=== PATIENT | male | born 1990 | race Caucasian/White ===

== ENCOUNTER 2019-03-19 07:19 | Emergency (ER) | payer SELFPAY ==
[2019-03-19 08:11] VITALS: BP 134/80
--- NOTE | 2019-03-19 08:45 | ER Document Report ---
HPI - HPI Patient complains to provider of: Laceration to left index finger with a spinner box this morning Time Seen by Provider: 03/19/19 08:33 Onset: This morning Onset/Duration: Sudden Quality of pain: Sharp Pain Level: 2 Associated Symptoms: None Exacerbated by: Movement Relieved by: Remaining still Similar symptoms previously: No Recently seen / treated by doctor: No - ROS ROS Unobtainable: No ROS unobtainable due to patient's medical condition ROS below otherwise negative: Yes Systems Reviewed and Negative: Yes All other systems reviewed and negative - REPRODUCTIVE Reproductive: DENIES: : - MUSCULOSKELETAL Musculoskeletal: REPORTS: Extremity pain - DERM Skin Color: [place] Past Medical History - Social History Smoking Status: Never Smoker Chew tobacco use (# tins/day): No Smoking Education Provided: No Drug Abuse: None Family History: None Patient has suicidal ideation: No Patient has homicidal ideation: No - Medical History Medical History: Negative Surgical Hx: Negative - Immunizations Immunizations up to date: No Hx Diphtheria, Pertussis, Tetanus Vaccination: No Vertical Provider Document - INFECTION CONTROL TRAVEL OUTSIDE OF THE [place] IN LAST 30 DAYS: No - MUSCULOSKELETAL/EXTREMETIES Notes: Patient with a superficial 0.5 cm laceration to the volar pad of the distal phalanx of the left index finger. Laceration is horizontal in nature does not cross the DIP joint space region. Patient is able to fully flex and extend the finger at the MCP, PIP, DIP joint space regions. Sensation is intact distal to the wound area, capillary refill less than 3 seconds Course - Re-evaluation Re-evalutation: 03/19/19 08:45 29-year-old male with a very superficial laceration to the left index finger. Will have nursing clean the wound area will plan to Dermabond closed. - Vital Signs Vital signs: Temp Pulse Resp BP Pulse Ox 98.4 F 77 16 134/80 H 98 03/19/19 07:27 03/19/19 07:27 03/19/19 07:27 03/19/19 07:27 03/19/19 07:27 Procedures - Laceration/Wound Repair Left Distal Finger 2nd digit Time completed: 09:28 Wound length (cm): 0.5 Wound's Depth, Shape: Superficial, Linear Laceration pre-procedure: Sterile PPE donned, Sterile drapes applied, Shur-Clens applied Wound explored: Clean Irrigated w/ Saline (mLs): 100 Wound Repaired With: Dermabond Layer Closure?: No Post-procedure wound care: Sterile dressing applied Post-procedure NV exam normal: Yes Complications: No Discharge - Discharge Clinical Impression: Laceration of finger, left Qualifiers: Encounter type: initial encounter Finger: index finger Damage to nail status: without damage Foreign body presence: without foreign body Qualified Code(s): S61.211A - Laceration without foreign body of left index finger without damage to nail, initial encounter Condition: Good Disposition: HOME, SELF-CARE Additional Instructions: 1. keep the wound area clean and dry 2. return to the ED for any redness, soft tissue swelling or signs of infection or follow up with your PCP 3. do not apply antibiotic ointment over the Dermabond 4. you may cover the wound area with a dry dressing. Do not pick at the Dermabond, it will flake off over time.
[2019-03-19] MEDS ORDERED: DIPH/PERTUSS(ACELL)/TETANUS VAC/PF 0.5 ML SYR (>=10YO) IM ONE (08:49)
== END 2019-03-19 09:53 | disposition home or self-care (01) ==
LOC: ER 07:19
DX: S61.211A Laceration without foreign body of left index finger without damage to nail, initial encounter (principal); W26.8XXA Contact with other sharp object(s), not elsewhere classified, initial encounter
CPT/HCPCS: 90471; 90715; 99282

== ENCOUNTER 2019-09-12 08:24 | Emergency (ER) | payer SELFPAY ==
--- NOTE | 2019-09-12 11:55 | ER Document Report ---
ED General - General Chief Complaint: Testicular Pain Stated Complaint: TESTICULAR PAIN Time Seen by Provider: 09/12/19 11:03 Notes: 29-year-old male with no pertinent past medical history presents to the emergency department for left-sided testicular pain starting yesterday morning after he picked up his 150 pound dog. States that the pain was sharp, stabbing in nature. Has since resolved. Is desiring a work note. states that he was manuel d that testicular pain can be a sign of COVID and he desires testing for that. He recently traveled to [place]. He denies any headaches, fevers, chills, nausea, vomiting, abdominal pain or additional symptoms at this time. TRAVEL OUTSIDE OF THE [place] IN LAST 30 DAYS: No - Related Data Allergies/Adverse Reactions: hydrocodone [From Vicodin] Allergy (Verified 03/19/19 08:09) Past Medical History - Social History Smoking Status: Unknown if Ever Smoked Chew tobacco use (# tins/day): Yes Frequency of alcohol use: Occasional Drug Abuse: None Family History: DM - Past Medical History Cardiac Medical History: Reports: None Pulmonary Medical History: Reports: None Neurological Medical History: Reports: None Endocrine Medical History: Reports: None Renal/ Medical History: Reports: None GI Medical History: Reports: None - Immunizations Immunizations up to date: No Hx Diphtheria, Pertussis, Tetanus Vaccination: No Review of Systems - Review of Systems Constitutional: No symptoms reported EENT: No symptoms reported Cardiovascular: No symptoms reported Respiratory: No symptoms reported Gastrointestinal: No symptoms reported Genitourinary: No symptoms reported Male Genitourinary: See HPI Musculoskeletal: No symptoms reported Skin: No symptoms reported Physical Exam - Vital signs Vitals: Temp Pulse Resp BP Pulse Ox 98.3 F 82 16 140/85 H 97 09/12/19 08:31 09/12/19 08:31 09/12/19 08:31 09/12/19 08:31 09/12/19 08:31 Interpretation: Normal - Notes Notes: Chaperoned by PCT [facility] Adult General: GENERAL: Alert, interacts well. No acute distress HEAD: Normocephalic, atraumatic EYES: Extraocular movements intact. ENT: Airway patent. Nares patent. NECK: Full range of motion. Supple. Trachea midline. No lymphadenopathy. LUNGS: Clear to auscultation bilaterally, no wheezes, rales, or rhonchi. No respiratory distress. Nontender chest wall. HEART: Regular rate and rhythm. No murmurs, rubs or gallops. ABDOMEN: Soft, nontender. Nondistended. (-) [place] sign. Bowel sounds present in all 4 quadrants. No rebound, guarding or masses. GENITOURINARY: No testicular tenderness, no testicular swelling, no rashes or lesions, no penile discharge. EXTREMITIES: Moves all 4 extremities spontaneously. BACK: Moves all extremities with full range of motion. NEUROLOGICAL: Alert and oriented x3. Normal speech. Strength 5/ 5 in all extremities. PSYCH: Normal affect, normal mood. SKIN: Warm, dry, normal turgor. No rashes or lesions noted. Course - Vital Signs Vital signs: Temp Pulse Resp BP Pulse Ox 98.1 F 65 18 123/70 99 09/12/19 14:08 09/12/19 14:08 09/12/19 14:08 09/12/19 14:08 09/12/19 14:08 Discharge - Discharge Clinical Impression: Testicular pain, left, Person under investigation for COVID-19 Condition: Stable Disposition: HOME, SELF-CARE Additional Instructions: At the present investigation for COVID-19, the [place] Department of Health and Human Services (division on public health) advises you to adhere to the following guidance until your test results are reported to you. If your test result is positive, you will receive additional formation from your provider in your local health department at that time. Remain at home until you are cleared by the health provider or public health authorities. Keep a log of visitors to your home, notify any visitors to your home of your isolation status. If you plan to move to a new address of the country, notify the local health department in your County. Call your doctor or seek care if you have emergent medical need. Before seeking medical care, call him to get instructions from the provider before arriving at the medical office, clinic, or hospital. Notified them that you are being tested for the virus (COVID-19) so that arrangements can be made, as necessary, to prevent transmission to others in the healthcare setting. Next, notified the local health department in your count includes the [facility]. If the medical emergency arises any need to call 911, and from the first responders that you are being tested for the virus that causes COVID-19. Next, notify the local health department and your county. Your ultrasound shows a small hypoechoic lesion in the right superior pole of the right testes. It shows no signs of hernia or epididymitis. I recommend you have a follow-up ultrasound in 3 to 6 months for repeat evaluation. Please follow up with your primary care provider soon as possible. You may return to the emergency department if you have worsening symptoms or development of new symptoms. Forms: Return to Work
--- NOTE | 2019-09-12 13:28 | RADIOLOGY REPORT (SQ) ---
EXAM DESCRIPTION: U/S SCROTUM W/DOPPLER IMAGES COMPLETED DATE/TIME: 09/12/2019 1:03 pm REASON FOR STUDY: left testicular pain COMPARISON: None. TECHNIQUE: Static and realtime jimenes scale imaging of the scrotum and testes. Selected color Doppler and spectral images recorded to document blood flow. LIMITATIONS: None. FINDINGS: RIGHT: TESTICLE: Normal size. Normal echotexture. Normal blood flow. No mass. There is a small hypoechoic area in the upper pole. There is internal flow demonstrated. Small tumor cannot be excluded. Diff erential would include both term cell an non germ cell tumors. EPIDIDYMIS: Normal. HYDROCELE OR VARICOCELE: No. HERNIA OR EXTRA-TESTICULAR MASS: No. OTHER: No other significant finding. LEFT: TESTICLE: Normal size. Normal echotexture. Normal blood flow. No mass. Small calcifications are no ramses. EPIDIDYMIS: Normal. HYDROCELE OR VARICOCELE: No. HERNIA OR EXTRA-TESTICULAR MASS: No. OTHER: No other significant finding. IMPRESSION: Small hypoechoic lesion in the superior pole of the right testis. 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 Small complex cyst is also a po ssibility. Recommend follow-up scrotal ultrasound in 3 to 6 months to ensure stability. The left te stis is unremarkable in appearance. No evidence of torsion. TECHNICAL DOCUMENTATION: JOB ID: [id number] 2010 [employer]- All Rights Reserved Reading location - IP/workstation name: [email or web address]
[2019-09-12 14:10] VITALS: BP 123/70
== END 2019-09-12 14:10 | disposition home or self-care (01) ==
LOC: ER 08:24
DX: N50.812 Left testicular pain (principal); Z20.828 Contact with and (suspected) exposure to other viral communicable diseases; Z88.6 Allergy status to analgesic agent
CPT/HCPCS: 99284; 87635; 76870; 93976; C9803